=== PATIENT | male | born 1950 | race Caucasian/White ===

== ENCOUNTER 2017-09-07 08:02 | Outpatient (CLI) | payer MEDICARE, BC ==
--- NOTE | 2017-09-07 11:21 | CT ---
CT ABDOMEN AND PELVIS WITH ORAL AND IV CONTRAST: Date: 09/07/17 HISTORY: Abdominal pain. Epigastric pain. FINDINGS: Lung bases are clear. Calcified granulomas are present in the spleen. The liver demonstrates decrease d attenuation compared to the spleen consistent with fatty infiltration. No calcified gallstones are seen. No hepatic mass or abnormal biliary ductal dilatation is identified. The pancreas, adrenal glan ds, and right kidney are normal. There are nonobstructing calculi in the left kidney, the largest valeria suring 4.0 mm. No free air, free fluid, or lymphadenopathy seen in the abdomen or pelvis. There are vascular calcifi cations without evidence of aneurysmal dilatation of the abdominal aorta. The small bowel loops are n ot abnormally dilated. A small, fat-containing left inguinal hernia is present. There are postop ray ges of left hip arthroplasty. Degenerative changes are present in the spine. IMPRESSION: 1. Fatty liver. 2. Splenic granulomas. 3. Nonobstructing left renal calculi. POS: [facility]
[2017-09-07] MEDS ORDERED: Iopamidol 370 76% 100 ML VIAL ONE (13:21)
== END 2017-09-07 08:03 | disposition home or self-care (01) ==
LOC: CT 08:02
PROVIDERS: ATTEND Family Medicine
DX: R10.9 Unspecified abdominal pain (principal); K76.0 Fatty (change of) liver, not elsewhere classified; D73.89 Other diseases of spleen; N20.0 Calculus of kidney
CPT/HCPCS: 74177

== ENCOUNTER 2018-08-18 10:34 | Outpatient (CLI) | payer MEDICARE, BC ==
--- NOTE | 2018-08-18 12:35 | MRI ---
MRI LUMBAR SPINE NONCONTRAST: HISTORY: Low back pain. Bilateral leg radiculopathy. FINDINGS: Vertebral body height and alignment are maintained. The conus medullaris has a normal appearance. T12-L1/L1-L2: Mild osteophytosis. Central canal and neural foramina are patent. L2-L3: Minimal disk bulge. The thecal sac is patent. The bulge and mild degenerative changes resul t in mild stenosis of each neural foramen. L3-L4: Disk space narrowing and desiccation of the disk. Diffuse posterior disk bulge. Circumferen tial degenerative changes with mild stenosis of the central canal and mild to moderate stenosis of ea ch neural foramen. L4-L5: Mild diffuse posterior disk bulge with minimal central protrusion and inferior extension. Co ntact but no significant compression of the thecal sac. Degenerative changes with moderate stenosis of each neural foramen. L5-S1: Minimal degenerative spondylolisthesis. The thecal sac is patent. Mild to moderate right an d severe left foraminal stenoses. IMPRESSION: Degenerative changes throughout the lumbar spine, as detailed above. The most significant stenosis i s at the left neural foramen of the lumbosacral junction. Clinical correlation regarding the left L5 dermatome is required. POS: [facility]
--- NOTE | 2018-08-18 12:38 | RAD ---
LUMBAR SPINE SERIES THREE VIEWS INCLUDING FLEXION AND EXTENSION: HISTORY: Bilateral leg pain and low back pain. FINDINGS: Vertebral bodies are normal in height. There is degenerative disk narrowing, most pronounced at L3-L 4 with some minimal disk narrowing at L4-L5 and L5-S1. Degenerative facet changes are present. Ther e is no spondylolisthesis on the neutral view. There is very limited motion in flexion or extension, without any definite change. IMPRESSION: Moderate arthritic changes of the spine. POS: [facility]
== END 2018-08-18 10:35 | disposition home or self-care (01) ==
LOC: TBSIIMAG 10:34
PROVIDERS: ATTEND Neurological Surgery
DX: M48.062 Spinal stenosis, lumbar region with neurogenic claudication (principal); M48.07 Spinal stenosis, lumbosacral region
CPT/HCPCS: 72100; 72148

== ENCOUNTER 2018-08-18 10:36 | Outpatient (CLI) | payer MEDICARE, BC ==
--- NOTE | 2018-08-18 13:26 | CT ---
CT OF THE ABDOMEN AND PELVIS WITHOUT IV CONTRAST: INDICATION: History of right-sided abdominal pain with renal stones. COMPARISON: Prior CT of the abdomen and pelvis dated 09/07/2017. FINDINGS: There is an 8 mm stone involving the inferior pole left kidney. There is a 5, 4, and 2 mm stone invo lving the inferior pole left kidney. There is an 8 and 2 mm stone involving the inferior pole of the right kidney. No hydronephrosis is evident. Unopacified liver, spleen, pancreas, and adrenal glands are unremarkable-appearing. There are scattered diverticula involving the colon. There are scattered vascular calcifications. There is a left total hip prosthesis in place. There is scattered degenerative change. IMPRESSION: 1. Bilateral nephrolithiasis. No ureteral calculus or hydronephrosis demonstrated. 2. Colonic diverticulosis. 3. Other chronic type findings. POS: [facility]
== END 2018-08-18 10:37 | disposition home or self-care (01) ==
LOC: TBSIIMAG 10:36
PROVIDERS: ATTEND Urology
DX: N20.0 Calculus of kidney (principal); K57.30 Diverticulosis of large intestine without perforation or abscess without bleeding; I70.90 Unspecified atherosclerosis
CPT/HCPCS: 72100; 72148; 74176

== ENCOUNTER 2018-09-24 03:15 | Outpatient (CLI) | payer MEDICARE, BC ==
[2018-09-24 11:57] LABS: Hemoglobin 15.5 g/dL (14.0-18.0); Mean Corpuscular HGB CONC 33.6 g/dL (32.0-36.0); Mean Corpuscular Hemoglobin 32.7 pg (27.0-31.0); Mean Corpuscular Volume 97.5 fL (78.0-98.0); Mean Platelet Volume 9.4 fL (7.4-10.4); Platelet Count 161 thou/uL (130-400); RBC Distribution Width 11.8 % (11.5-14.5); Red Blood Cell (RBC) Count 4.73 mill/uL (4.70-6.10); White Blood Cell (WBC) Count 9.8 thou/uL (4.8-10.8)
[2018-09-24 12:02] LABS: Prothrombin Time 12.8 SEC (12.0-14.7)
[2018-09-24 12:09] LABS: Bilirubin Negative (Negative); Blood, Urine Small (Negative); Clarity CLEAR (Clear); Glucose, Urine (Dipstick) Negative (Negative); Leukocyte Moderate (Negative); Nitrite Negative (Negative); Protein, Urine (Dipstick) Negative (Neg-Trace); Specific Gravity, Urine 1.012 (1.002-1.036); Urobilinogen 0.2 mg/dL (0.2-1.0)
[2018-09-24 12:11] LABS: Bacteria/HPF None Seen HPF (None Seen); Hyaline Casts/LPF 0-3 HYALINE CAST LPF (0-3 Hyaline); Squamous Epithelial None Seen HPF (0-3); WBC/HPF 21-50 HPF (0-3)
[2018-09-24 12:21] LABS: Anion Gap 15 mmol/L (10-20); BUN (Urea Nitrogen) 12 mg/dL (8.4-25.7); Calc. Creatinine Clearance 0 mL/min (70-130); Calcium 9.7 mg/dL (7.8-10.44); Carbon Dioxide 25 mmol/L (23-31); Chloride 104 mmol/L (98-107); Estimated GFR-MDRD 87; Glucose 91 mg/dL (80-115); Potassium 4.7 mmol/L (3.5-5.1); Sodium 139 mmol/L (136-145)
--- NOTE | 2018-09-24 15:04 | EKG ---
Test Reason : Blood Pressure : / mmHG Vent. Rate : 063 BPM Atrial Rate : 063 BPM P-R Int : 152 ms QRS Dur : 128 ms QT Int : 442 ms P-R-T Axes : 042 026 006 degrees QTc Int : 452 ms Normal sinus rhythm Right bundle branch block Abnormal ECG Confirmed by CINDY MONIQUE ([id number]) on 09/24/2018 3:04:02 PM Referred By: JOSE Confirmed By:CINDY MONIQUE
== END 2018-09-24 03:16 | disposition home or self-care (01) ==
LOC: LABBT 03:15
PROVIDERS: ATTEND Urology
DX: Z01.818 Encounter for other preprocedural examination (principal); N20.0 Calculus of kidney; N40.1 Benign prostatic hyperplasia with lower urinary tract symptoms
CPT/HCPCS: 80048; 81001; 85027; 85610; 85730; 87077; 87086; 87186; 93005; 93010

== ENCOUNTER 2018-10-08 06:21 | Day surgery (SDC) | payer MEDICARE, BC ==
[2018-09-24 10:34] VITALS: BMI 31.9
[2018-10-08] MEDS ORDERED: cefTRIAXone\\ROCEPHIN 1 GM VIAL ONE (06:35)
[2018-10-08] MEDS ORDERED: Sodium Chloride 0.9% 100 ML ONE (06:46)
[2018-10-08] MEDS ORDERED: Fentanyl 100 MCG/2 ML VIAL ONE (07:26)
[2018-10-08] MEDS ORDERED: Iothalamate Meglumine 60% 50 ML VIAL FS ONE (07:36)
[2018-10-08] MEDS ORDERED: Phenazopyridine HCl 97.5 MG TABLET ONE (10:04)
[2018-10-08] MEDS ORDERED: PHENYLEPHRINE-NS 100 MCG/ML 10 ML SYRINGE ONE (12:17)
[2018-10-08] MEDS ORDERED: Glycopyrrolate 0.2 MG/ML 5 ML SYRINGE ONE (12:17)
[2018-10-08] MEDS ORDERED: Rocuronium Bromide 10 MG/ML (10ML VIAL) ONE (12:17)
[2018-10-08] MEDS ORDERED: Ondansetron PF 4 MG/2 ML Vial ONE (12:17)
[2018-10-08] MEDS ORDERED: PROPOFOL 200 MG/20 ML VIAL ONE (12:17)
[2018-10-08] MEDS ORDERED: Lidocaine 1% PF 5 ML VIAL ONE (12:17)
[2018-10-08] MEDS ORDERED: traMADol HCl 50 MG TAB ONE (12:40)
[2018-10-08] MEDS ORDERED: Oxybutynin 5 MG TAB ONE (13:37)
--- NOTE | 2018-10-11 13:36 | OP ---
DATE OF PROCEDURE: 10/08/2018 SERVICE: Urology. PREOPERATIVE DIAGNOSIS: Bilateral renal calculi. POSTOP DIAGNOSIS: Bilateral renal calculi. PROCEDURES PERFORMED: Cystoscopy with right ureteroscopy, laser lithotripsy, basket extraction of stone, and placement of a 6 x 26 double-J stent. INDICATION FOR PROCEDURE: Mr. Kirkland is a 68-year-old white male, who initially presented to [facility] with kidney stones many years ago. He has previously had ureteroscopies with surgery and had been on stone prevention with a Litholink. He failed to follow up for a few years and has now presented with recurrent hematuria and recurrent urinary tract infection. He was found to have bilateral renal calculi and we have elected to start intervention by treating stones on the right side. Risks and benefits of the surgery have been discussed and he has agreed to proceed forward. DESCRIPTION OF PROCEDURE: After identification of armband and verification of consent, the patient was brought back to the operating room, where he underwent general anesthesia with endotracheal intubation. He was then placed in dorsal lithotomy position and prepped and draped in the usual sterile fashion. After appropriate time-out, a lubricated 22-Croatian rigid cystoscope was introduced per urethra into the bladder. Attention was turned to the right ureteral orifice, which was cannulated with a 0.035 Sensor wire up to the level of renal pelvis. The cystoscope was then removed and a dual-lumen ureteral catheter was advanced over the Sensor wire to the level of the proximal ureter. An Amplatz Super Stiff wire was then placed through the second lumen up to the level of renal pelvis. The dual-lumen was then removed and the Sensor wire affixed to the drapes as a safety wire. A 11/13 x 46 cm ureteral access sheath was then advanced over the Super Stiff wire up to the level of the proximal ureter. The inner cannula and Super Stiff wire were then removed leaving the outer sheath and Sensor wire in place as a safety wire. A flexible digital ureteroscope was then passed through the ureteral access sheath up to the level of renal pelvis. A full pyeloscopy was performed which demonstrated a few calculi within the right kidney measuring about 2 mm and 8 mm. The 2 mm stone was able to be basketed and removed with simple basket extraction. The 8 mm stone was moved from the lower pole into the upper pole with a 1.9-Croatian ZeroTip Nitinol basket and then a 365 micron laser fiber was used to fragment the stone into small pieces. The pieces were then individually removed with the 1.9-[place]atian ZeroTip Nitinol basket until there were no additional stone fragments identified. Only remaining fragments were submillimeter dust particles, which I felt would pass easily without any problems. The sheath and the ureteroscope was then withdrawn and pull-back ureteroscopy was employed with no additional stones found within the ureter. The ureteroscope and sheath were then removed and the cystoscope was then backloaded over the sensor wire back in the bladder. A 6 x 26 double-J stent was advanced over the Sensor wire up to the level of renal pelvis. The wire was removed leaving a good curl in the kidney and a good curl in the bladder. There was noted to be mucosal splitting on the ureter on the way out secondary to the ureteral access sheath, which had dilated the ureter somewhat. As such, I have elected to leave the stent in for two weeks to allow for better healing. The bladder was emptied and the cystoscope was removed. The patient then awakened and taken to PACU for recovery in stable condition. COMPLICATIONS: None. ESTIMATED BLOOD LOSS: Minimal. RETAINED TUBES AND DRAINS: 6 x 26 double-J stent on the right. SPECIMENS: Stone for stone analysis. DISPOSITION: The patient will be discharged home and follow up with me in approximately 2 weeks for a cysto stent removal after which time, we can discuss treatment if his UTI do not stop. Job ID: [id number]
[2018-10-13 10:18] LABS: CA Oxalate Dihydrate 20 % (.); CA Oxalate Monohydrate 50 % (.); CA Phosphate 30 % (.); Color Tan (.); Stone Weight 26.2 mg (.)
== END 2018-10-08 15:17 | disposition home or self-care (01) ==
LOC: SDC 06:21
PROVIDERS: ATTEND Urology
PROC: 0TF38ZZ Fragmentation in Right Kidney Pelvis, Via Natural or Artificial Opening Endoscopic (ICD-10-PCS; principal; 2018-10-08)
PROC: 0T768DZ Dilation of Right Ureter with Intraluminal Device, Via Natural or Artificial Opening Endoscopic (ICD-10-PCS; 2018-10-08)
DX: N20.0 Calculus of kidney (principal); N40.0 Benign prostatic hyperplasia without lower urinary tract symptoms; K58.9 Irritable bowel syndrome, unspecified; E78.5 Hyperlipidemia, unspecified; I10 Essential (primary) hypertension; M19.90 Unspecified osteoarthritis, unspecified site; Z88.2 Allergy status to sulfonamides; M48.061 Spinal stenosis, lumbar region without neurogenic claudication; G25.81 Restless legs syndrome; Z79.82 Long term (current) use of aspirin; Z79.899 Other long term (current) drug therapy; Z88.0 Allergy status to penicillin; Z88.5 Allergy status to narcotic agent
CPT/HCPCS: 52356; 76000; 82365; 88300; C1769; J0696; J2001; J2405; J2704; J3010; J7050; Q9961

== ENCOUNTER 2018-11-30 09:46 | Outpatient (CLI) | payer MEDICARE, BC ==
--- NOTE | 2018-11-30 11:10 | ULT ---
BILATERAL RENAL ULTRASOUND: HISTORY: Kidney stones. FINDINGS: The right kidney measures 11.8 cm in length, and the left kidney measures 10.3 cm in length. There i s a left renal calculus, measuring 1 cm. No renal mass is noted. No hydronephrosis is seen. The ur inary bladder is unremarkable. IMPRESSION: Nonobstructing 1 cm left renal calculus. POS: [facility]
== END 2018-11-30 09:47 | disposition home or self-care (01) ==
LOC: BICULT 09:46
PROVIDERS: ATTEND Urology
DX: N20.0 Calculus of kidney (principal)
CPT/HCPCS: 76770

== ENCOUNTER 2019-08-18 14:55 | Outpatient (CLI) | payer MEDICARE, BC ==
--- NOTE | 2019-08-18 15:43 | RAD ---
CERVICAL SPINE FOUR VIEWS: HISTORY: Cervicalgia. FINDINGS: The cervical vertebrae maintain height and alignment. There are mild to moderate degenerative changes in the mid and lower cervical spine with loss of disk space and osteophytes, seen most pronounced at the C5-C6 and C6-C7 levels. Posterior spondylosis at C5-C6 is noted. Mild facet hypertrophy is seen at these levels. IMPRESSION: Mild to moderate degenerative changes in the lower cervical spine, as described. POS: [facility]
== END 2019-08-18 14:56 | disposition home or self-care (01) ==
LOC: BICRAD 14:55
PROVIDERS: ATTEND Family Medicine
DX: M54.2 Cervicalgia (principal); M47.812 Spondylosis without myelopathy or radiculopathy, cervical region
CPT/HCPCS: 36415; 72040; 80053; 83520; 84443; 85025; 85652; 86038; 86200; 86225

== ENCOUNTER 2019-09-15 11:57 | Outpatient (CLI) | payer MEDICARE, BC ==
--- NOTE | 2019-09-15 12:23 | RAD ---
RADIOGRAPH ABDOMEN 1 VIEW: DATE: 09/15/2019. HISTORY: A 69-year-old male with calculus of kidney. COMPARISON: 10/15/2015. FINDINGS: The previously demonstrated approximately 13 mm calculus overlying the lower pole of the left kidney either has changed position and orientation, or has been eliminated and then replaced with new calcul i. Currently, there is a similar-sized 12 x 5 mm calculus overlying the left renal mid-lower pole. Slightly inferior to that, there are either 2 small calculi adjacent to each other or 1 branched calc ulus, which in aggregate measures approximately 8 x 5 mm. No calculus is visualized over the right renal shadow. Bowel gas pattern is normal. IMPRESSION: Nephrolithiasis consisting of calculi at left lower renal pole. POS: [facility]
== END 2019-09-15 11:58 | disposition home or self-care (01) ==
LOC: RAD 11:57
PROVIDERS: ATTEND Urology
DX: N20.0 Calculus of kidney (principal)
CPT/HCPCS: 74018

== ENCOUNTER 2021-01-10 09:40 | Outpatient (CLI) | payer MEDICARE, BC | END 2021-01-10 09:41 | disposition home or self-care (01) | LOC: BICMRI 09:40 | PROVIDERS: ATTEND Family Medicine | DX: M47.22 Other spondylosis with radiculopathy, cervical region (principal) | CPT/HCPCS: 72141 ==

== ENCOUNTER 2022-01-27 10:12 | Outpatient (CLI) | payer MEDICARE, BC | END 2022-01-27 10:13 | disposition home or self-care (01) | LOC: TBSIIMAG 10:12 | PROVIDERS: ATTEND Family Medicine | DX: M47.26 Other spondylosis with radiculopathy, lumbar region (principal); M47.817 Spondylosis without myelopathy or radiculopathy, lumbosacral region | CPT/HCPCS: 72148 ==

== ENCOUNTER 2022-04-10 10:05 | Outpatient (CLI) | payer MEDICARE, BC ==
[2022-04-10 12:03] LABS: #Eosinphils 0.1 10x3/uL (0.0-0.5); #Monocytes 0.7 10x3/uL (0.0-1.1); #Neutrophils 2.3 10x3/uL (1.5-8.4); %Basophils 0.8 % (0.0-2.0); %Eosinophils 2.8 % (0.0-6.0); %Lymphocytes 37.6 % (18.0-47.0); %Monocytes 13.3 % (0.0-10.0); %Neutrophils 45.3 % (40.0-75.0); Hemoglobin 15.5 g/dL (13.5-17.5); Mean Corpuscular HGB CONC 33.9 g/dL (32.0-36.0); Mean Corpuscular Hemoglobin 31.8 pg (27.0-33.0); Mean Corpuscular Volume 93.6 fl (81.2-95.1); Mean Platelet Volume 11.9 fl (7.4-10.4); Platelet Count 168 10x3/uL (150-450); RBC Distribution Width 12.5 % (11.5-14.5); Red Blood Cell (RBC) Count 4.88 10x6/uL (4.32-5.72)
[2022-04-10 12:17] LABS: Prothrombin Time 10.9 sec (9.5-12.1)
[2022-04-10 12:21] LABS: Anion Gap 14 mmol/L (10-20); BUN (Urea Nitrogen) 13 mg/dL (8.4-25.7); Calc. Creatinine Clearance 0 mL/min (70-130); Calcium 9.4 mg/dL (7.8-10.44); Carbon Dioxide 26 mmol/L (23-31); Chloride 101 mmol/L (98-107); Estimated GFR 91; Glucose 119 mg/dL (83-110); Potassium 3.8 mmol/L (3.5-5.1); Sodium 137 mmol/L (136-145)
== END 2022-04-10 10:06 | disposition home or self-care (01) ==
LOC: LABBT 10:05
PROVIDERS: ATTEND Orthopaedic Surgery
DX: Z01.818 Encounter for other preprocedural examination (principal); M16.11 Unilateral primary osteoarthritis, right hip; Z20.822 Contact with and (suspected) exposure to COVID-19
CPT/HCPCS: 80048; 85025; 85610; 87081; 87811; 93005; 93010

== ENCOUNTER 2022-04-10 11:52 | Outpatient (CLI) | payer MEDICARE, BC | END 2022-04-10 11:53 | disposition home or self-care (01) | LOC: BICRAD 11:52 | PROVIDERS: ATTEND Urology | DX: N20.0 Calculus of kidney (principal) | CPT/HCPCS: 74018; 80048; 85025; 85610; 87081; 87811; 93005 ==

== ENCOUNTER 2022-04-15 05:31 | Observation (INO) | payer MEDICARE, BC ==
[2022-04-11 11:59] VITALS: BMI 30.4
[2022-04-15] MEDS ORDERED: Tranexamic Acid 1,000 MG/10 ML VIAL ONE (06:17)
[2022-04-15] MEDS ORDERED: Sodium Chloride 0.9% 0 ML ONE (06:17)
[2022-04-15] MEDS ORDERED: CEFAZOLIN 2 GM VIAL ONE (06:17)
[2022-04-15] MEDS ORDERED: Vancomycin (BATCH) 1.5 GRAM/300 ML BAG ONE (06:17)
[2022-04-15] MEDS ORDERED: Sodium Chloride 0.9% 100 ML ONE (06:18)
[2022-04-15] MEDS ORDERED: Bupivacaine PF 0.5% 30 ML VIAL ONE (06:25)
[2022-04-15] MEDS ORDERED: fentaNYL Citrate/PF 100 MCG/2 ML SYRINGE ONE (06:30)
[2022-04-15] MEDS ORDERED: Propofol 1,000 MG/100 ML VIAL IV ONE (06:31)
[2022-04-15] MEDS ORDERED: Midazolam HCl 2 mg/2 ml Vial ONE (06:44)
[2022-04-15] MEDS ORDERED: Fentanyl 100 MCG/2 ML VIAL ONE (06:44)
[2022-04-15] MEDS ORDERED: Levofloxacin 500 mg/D5W 100 ml Premix Bag ONE (06:51)
[2022-04-15] MEDS ORDERED: Lidocaine 2% 6 ML SYR ONE (07:09)
[2022-04-15] MEDS ORDERED: MORPHINE 5 MG/10 ML PF VIAL ONE (07:09)
[2022-04-15] MEDS ORDERED: Phenylephrine 10 MG/ML VIAL ONE (07:15)
[2022-04-15] MEDS ORDERED: ePHEDrine 50 MG/ML VIAL ONE (07:15)
[2022-04-15] MEDS ORDERED: Dexamethasone 20 MG/5 ML VIAL ONE (07:15)
[2022-04-15] MEDS ORDERED: PROPOFOL 200 MG/20 ML VIAL ONE (07:15)
[2022-04-15] MEDS ORDERED: Ondansetron PF 4 MG/2 ML Vial ONE (07:15)
[2022-04-15] MEDS ORDERED: Acetaminophen 325 MG TAB PO PRN (07:22)
[2022-04-15] MEDS ORDERED: Promethazine HCl 25 MG/ML VIAL IM PRN ×2 (07:22→08:32)
[2022-04-15] MEDS ORDERED: Zolpidem Tartrate 5 MG TAB PO PRN (07:22)
[2022-04-15] MEDS ORDERED: Ondansetron PF 4 MG/2 ML Vial IVP PRN (07:22)
[2022-04-15] MEDS ORDERED: HYDROcodone/Acetaminophen 10/325 mg Tablet PO PRN (07:22)
[2022-04-15] MEDS ORDERED: Ondansetron HCl/PF 4 MG/2 ML Vial IVP PRN (08:32)
[2022-04-15] MEDS ORDERED: Promethazine HCl 25 MG/ML VIAL IVPB PRN (08:32)
[2022-04-15] MEDS: Aspirin 81 mg Enteric Coated Tablet PO SCH ×2 (09:00→21:26)
[2022-04-15] MEDS: Sodium Chloride 0.9% 1,000 ML IV SCH ×2 (10:29→21:25)
[2022-04-15] MEDS: Ketorolac Tromethamine 30 MG/ML VIAL IVP SCH ×2 (14:30→20:49)
[2022-04-15] MEDS ORDERED: Vancomycin 1.5 GRAM/300 ML BAG 1.5 GM in Premix Bag 1 BAG IVPB SCH (20:00)
[2022-04-16] MEDS: Sodium Chloride 0.9% 1,000 ML IV SCH ×3 (02:31→23:32)
[2022-04-16] MEDS: diphenhydrAMINE 25 MG CAP PO PRN ×3 (02:33→18:29)
[2022-04-16] MEDS: HYDROcodone/Acetaminophen 10/325 mg Tablet PO PRN ×3 (02:34→18:29)
[2022-04-16 05:27] LABS: Hemoglobin 12.7 g/dL (14.0-18.0); Mean Corpuscular HGB CONC 33.6 g/dL (32.0-36.0); Mean Corpuscular Hemoglobin 33.5 pg (27.0-31.0); Mean Corpuscular Volume 99.8 fL (78.0-98.0); Mean Platelet Volume 9.1 fL (7.4-10.4); Platelet Count 144 thou/uL (130-400); RBC Distribution Width 12.1 % (11.5-14.5); Red Blood Cell (RBC) Count 3.81 mill/uL (4.70-6.10); White Blood Cell (WBC) Count 9.9 thou/uL (4.8-10.8)
[2022-04-16] MEDS: Ketorolac Tromethamine 30 MG/ML VIAL IVP SCH ×3 (06:18→21:41)
[2022-04-16] MEDS: Aspirin 81 mg Enteric Coated Tablet PO SCH ×2 (08:48→21:42)
[2022-04-16] MEDS: Ferrous Gluconate 324 MG TAB PO SCH ×2 (08:48→18:15)
[2022-04-16] MEDS: Multivitamin W/ Minerals 1 TAB PO SCH (08:48)
[2022-04-16] MEDS: Senokot S 8.6-50 MG TAB PO SCH ×2 (08:48→21:43)
[2022-04-17] MEDS: HYDROcodone/Acetaminophen 10/325 mg Tablet PO PRN ×2 (01:05→06:34)
[2022-04-17] MEDS: diphenhydrAMINE 25 MG CAP PO PRN ×2 (01:06→06:35)
[2022-04-17] MEDS: Ketorolac Tromethamine 30 MG/ML VIAL IVP SCH (04:50)
[2022-04-17 07:48] VITALS: BP 135/79; TEMP 97.8
[2022-04-17] MEDS: Ferrous Gluconate 324 MG TAB PO SCH (09:45)
[2022-04-17] MEDS: Aspirin 81 mg Enteric Coated Tablet PO SCH (09:46)
[2022-04-17] MEDS: Multivitamin W/ Minerals 1 TAB PO SCH (09:46)
[2022-04-17] MEDS: Senokot S 8.6-50 MG TAB PO SCH (09:46)
== END 2022-04-17 10:24 | disposition home or self-care (01) ==
LOC: SDC 05:31 → SJJU 10:18
PROVIDERS: ADMIT Orthopaedic Surgery; ATTEND Orthopaedic Surgery
PROC: 0SR90J9 Replacement of Right Hip Joint with Synthetic Substitute, Cemented, Open Approach (ICD-10-PCS; principal; 2022-04-15)
DX: M16.11 Unilateral primary osteoarthritis, right hip (principal); Z79.82 Long term (current) use of aspirin; Z79.899 Other long term (current) drug therapy; Z88.0 Allergy status to penicillin; Z88.5 Allergy status to narcotic agent; G47.33 Obstructive sleep apnea (adult) (pediatric)
CPT/HCPCS: 27130; 73502; 85027; 97110 ×3; 97116 ×3; 97530 ×4; 97535 ×2; C1776; J3370; 36415; J0690; J1100; J1885; J1956; J2250; J2274; J2370; J2405; J2704; J3010; J3490; J7050; S0020

== ENCOUNTER 2022-07-29 10:30 | Outpatient (CLI) | payer MEDICARE, BC | END 2022-07-29 10:31 | disposition home or self-care (01) | LOC: BICCT 10:30 | PROVIDERS: ATTEND Urology | DX: N20.0 Calculus of kidney (principal) | CPT/HCPCS: 74176 ==

== ENCOUNTER 2022-09-09 14:11 | Outpatient (CLI) | payer MEDICARE, BC | END 2022-09-09 14:12 | disposition home or self-care (01) | LOC: BICRAD 14:11 | PROVIDERS: ATTEND Family Medicine | DX: M79.642 Pain in left hand (principal) ==

== ENCOUNTER 2022-09-19 09:24 | Outpatient (CLI) | payer MEDICARE, BC ==
[2022-09-19 11:09] LABS: Hemoglobin 15.2 g/dL (13.5-17.5); Mean Corpuscular HGB CONC 33.4 g/dL (32.0-36.0); Mean Corpuscular Hemoglobin 31.1 pg (27.0-33.0); Mean Platelet Volume 11.3 fl (7.4-10.4); Platelet Count 178 10x3/uL (150-450); RBC Distribution Width 12.6 % (11.5-14.5); Red Blood Cell (RBC) Count 4.89 10x6/uL (4.32-5.72); White Blood Cell (WBC) Count 4.8 10x3/uL (3.5-10.5)
[2022-09-19 11:20] LABS: Bilirubin Neg (Negative); Blood, Urine 25 (Negative); Clarity Slightly Cloudy (Clear); Glucose, Urine (Dipstick) Normal (Negative); Ketone, Urine Negative (Negative); Leukocyte 500 (Negative); Nitrite Negative (Negative); Protein, Urine (Dipstick) Negative (Neg-Trace); Urobilinogen Normal mg/dL (Less than 2); pH, Urine 6.5 (5.0-9.0)
[2022-09-19 11:23] LABS: PTT 27.6 sec (22.0-33.0); Prothrombin Time 10.6 sec (9.5-12.1)
[2022-09-19 11:30] LABS: Anion Gap 16 mmol/L (10-20); BUN (Urea Nitrogen) 14 mg/dL (8.4-25.7); Calc. Creatinine Clearance 0 mL/min (70-130); Calcium 9.6 mg/dL (7.8-10.44); Carbon Dioxide 26 mmol/L (23-31); Chloride 102 mmol/L (98-107); Estimated GFR 89; Glucose 102 mg/dL (83-110); Potassium 3.8 mmol/L (3.5-5.1); Sodium 140 mmol/L (136-145)
[2022-09-19 11:34] LABS: Squamous Epithelial 0-3 HPF (0-3)
[2022-09-19 11:35] LABS: Bacteria/HPF 1+ HPF (None Seen); Mucous/LPF Rare LPF (<2+)
== END 2022-09-19 09:25 | disposition home or self-care (01) ==
LOC: LABBT 09:24
PROVIDERS: ATTEND Urology
DX: Z01.818 Encounter for other preprocedural examination (principal); N40.1 Benign prostatic hyperplasia with lower urinary tract symptoms; N20.0 Calculus of kidney
CPT/HCPCS: 71046; 80048; 81001; 85027; 85610; 85730; 87086; 93005; 93010

== ENCOUNTER 2022-10-01 15:37 | Emergency (ER) | payer MEDICARE, BC ==
[2022-10-01 18:03] LABS: Bacteria/HPF None Seen HPF (None Seen); Bilirubin Negative (Negative); Blood, Urine 3+ (Negative); Clarity Turbid (Clear); Glucose, Urine (Dipstick) Normal (Negative); Ketone, Urine Negative (Negative); Leukocyte 75 Leu/uL (Negative); Nitrite Negative (Negative); Protein, Urine (Dipstick) 100 mg/dL (Neg-Trace); RBC/HPF Greater than 50 HPF (0-3); Specific Gravity, Urine 1.033 (1.002-1.036); Squamous Epithelial None Seen HPF (0-3); Urobilinogen Normal mg/dL (Less than 2); pH, Urine 5.5 (5.0-9.0)
[2022-10-01 18:06] LABS: #Lymphocytes 0.4 thou/uL (1.20-3.40); #Monocytes 0.3 thou/uL (0.11-0.59); #Neutrophils 10.6 thou/uL (1.40-6.50); %Basophils 0.4 % (0.0-1.0); %Eosinophils 0.1 % (0.0-10.0); %Lymphocytes 3.3 % (21.0-51.0); %Monocytes 2.7 % (0.0-10.0); %Neutrophils 93.4 % (42.0-75.0); Hemoglobin 16.5 g/dL (14.0-18.0); Mean Corpuscular HGB CONC 34.3 g/dL (32.0-36.0); Mean Corpuscular Hemoglobin 32.8 pg (27.0-31.0); Mean Corpuscular Volume 95.6 fl (78.0-98.0); Mean Platelet Volume 8.6 fL (7.4-10.4); Platelet Count 132 10x3/uL (130-400); RBC Distribution Width 12.4 % (11.5-14.5); Red Blood Cell (RBC) Count 5.02 mill/uL (4.70-6.10); White Blood Cell (WBC) Count 11.3 10x3/uL (4.8-10.8)
[2022-10-01 18:25] LABS: ALT (SGPT) 27 U/L (8-55); AST (SGOT) 25 U/L (5-34); Alkaline Phosphatase 52 U/L (40-110); Anion Gap 14 mmol/L (10-20); BUN (Urea Nitrogen) 15 mg/dL (8.4-25.7); Bilirubin, Total 1.3 mg/dL (0.2-1.2); Calc. Creatinine Clearance 0 mL/min (70-130); Calcium 9.7 mg/dL (7.8-10.44); Carbon Dioxide 25 mmol/L (23-31); Chloride 101 mmol/L (98-107); Estimated GFR 56; Globulin 3.6 g/dL (2.4-3.5); Glucose 151 mg/dL (83-110); Potassium 3.4 mmol/L (3.5-5.1); Protein, Total 7.6 g/dL (5.8-8.1); Sodium 137 mmol/L (136-145)
[2022-10-01] MEDS ORDERED: cefTRIAXone\\ROCEPHIN 1 GM VIAL ONE (19:18)
[2022-10-01] MEDS ORDERED: Ketorolac Tromethamine 30 MG/ML VIAL ONE (19:18)
== END 2022-10-01 21:00 | disposition home or self-care (01) ==
LOC: ERS 15:37
DX: R68.83 Chills (without fever) (principal); R68.89 Other general symptoms and signs; I10 Essential (primary) hypertension; E78.00 Pure hypercholesterolemia, unspecified; Z79.899 Other long term (current) drug therapy
CPT/HCPCS: 36415; 74176; 80053; 81003; 81015; 85025; 87040; 87077; 87086; 87149; 87186; 96365; 96367; 96375; J0696; J1885; J1956

== ENCOUNTER 2022-10-03 06:51 | Day surgery (SDC) | payer MEDICARE, BC ==
[2022-10-01 10:10] VITALS: BMI 29.7
[~2022-10-03 06:51] MED LIST: Bacitracin Zinc Ointment 30 gm TUBE ONE; Iopamidol 30 ML ONE
[2022-10-03] MEDS ORDERED: Levofloxacin 500 mg/D5W 100 ml Premix Bag ONE (07:50)
[2022-10-03] MEDS ORDERED: SUGAMMADEX SODIUM 200 MG/2 ML VIAL ONE (08:35)
[2022-10-03] MEDS ORDERED: fentaNYL PF 100 MCG/2 ML SYRINGE ONE (08:35)
[2022-10-03] MEDS ORDERED: CEFAZOLIN 2 GM VIAL ONE (08:53)
[2022-10-03] MEDS ORDERED: Sodium Chloride 0.9% 100 ML ONE (08:53)
[2022-10-03] MEDS ORDERED: Bupivacaine/Epinephrine 0.25% 30 ML VIAL ONE (10:37)
== END 2022-10-03 13:51 | disposition home or self-care (01) ==
LOC: SDC 06:51
PROVIDERS: ATTEND Urology
PROC: 0TC13ZZ Extirpation of Matter from Left Kidney, Percutaneous Approach (ICD-10-PCS; principal; 2022-10-03)
PROC: 0TC78ZZ Extirpation of Matter from Left Ureter, Via Natural or Artificial Opening Endoscopic (ICD-10-PCS; 2022-10-03)
PROC: 0T778DZ Dilation of Left Ureter with Intraluminal Device, Via Natural or Artificial Opening Endoscopic (ICD-10-PCS; 2022-10-03)
DX: N20.2 Calculus of kidney with calculus of ureter (principal); N40.1 Benign prostatic hyperplasia with lower urinary tract symptoms; R35.0 Frequency of micturition; E78.5 Hyperlipidemia, unspecified; G47.33 Obstructive sleep apnea (adult) (pediatric); M17.9 Osteoarthritis of knee, unspecified; M19.019 Primary osteoarthritis, unspecified shoulder; Z79.2 Long term (current) use of antibiotics; Z79.82 Long term (current) use of aspirin; Z79.899 Other long term (current) drug therapy; Z88.0 Allergy status to penicillin; Z88.5 Allergy status to narcotic agent
CPT/HCPCS: 36415; 82365; 86850; 86900; 86901; 88300; C1747; C1769; C1894; C2617; J1956; J3490; Q9967

== ENCOUNTER 2022-10-08 18:42 | Inpatient (IN) | payer MEDICARE, BC ==
[2022-10-08] MEDS ORDERED: Aspirin Chewable 81 MG TAB ONE (19:25)
[2022-10-08 19:41] LABS: #Eosinphils 0.2 thou/uL (0.0-0.7); #Lymphocytes 2.3 thou/uL (1.20-3.40); #Monocytes 0.6 thou/uL (0.11-0.59); #Neutrophils 3.8 thou/uL (1.40-6.50); %Basophils 0.3 % (0.0-1.0); %Eosinophils 3.5 % (0.0-10.0); %Lymphocytes 32.7 % (21.0-51.0); %Neutrophils 54.4 % (42.0-75.0); Mean Corpuscular HGB CONC 34.3 g/dL (32.0-36.0); Mean Corpuscular Hemoglobin 32.8 pg (27.0-31.0); Mean Corpuscular Volume 95.7 fl (78.0-98.0); Mean Platelet Volume 8.8 fL (7.4-10.4); Platelet Count 190 10x3/uL (130-400); RBC Distribution Width 12.5 % (11.5-14.5); Red Blood Cell (RBC) Count 5.16 mill/uL (4.70-6.10); White Blood Cell (WBC) Count 6.9 10x3/uL (4.8-10.8)
[2022-10-08 19:43] LABS: Bacteria/HPF None Seen HPF (None Seen); Bilirubin Negative (Negative); Blood, Urine 3+ (Negative); Clarity Clear (Clear); Glucose, Urine (Dipstick) Normal (Negative); Ketone, Urine Negative (Negative); Leukocyte 75 Leu/uL (Negative); Nitrite Negative (Negative); Protein, Urine (Dipstick) Negative (Neg-Trace); Specific Gravity, Urine 1.006 (1.002-1.036); Squamous Epithelial 0-3 HPF (0-3); Urobilinogen Normal mg/dL (Less than 2); WBC/HPF 21-50 HPF (0-3); pH, Urine 6.5 (5.0-9.0)
[2022-10-08 20:02] LABS: ALT (SGPT) 27 U/L (8-55); AST (SGOT) 25 U/L (5-34); Albumin 4.1 g/dL (3.4-4.8); Alkaline Phosphatase 56 U/L (40-110); Anion Gap 15 mmol/L (10-20); BUN (Urea Nitrogen) 14 mg/dL (8.4-25.7); Bilirubin, Total 0.8 mg/dL (0.2-1.2); Calc. Creatinine Clearance 0 mL/min (70-130); Calcium 9.6 mg/dL (7.8-10.44); Carbon Dioxide 27 mmol/L (23-31); Chloride 98 mmol/L (98-107); Estimated GFR 83; Globulin 3.8 g/dL (2.4-3.5); Glucose 100 mg/dL (83-110); Potassium 3.1 mmol/L (3.5-5.1); Protein, Total 7.9 g/dL (5.8-8.1); Sodium 137 mmol/L (136-145)
[2022-10-08] MEDS ORDERED: Levofloxacin 500 mg/D5W 100 ml Premix Bag ONE (20:46)
[2022-10-08] MEDS ORDERED: Potassium Chloride 20 MEQ TAB PO SCH (22:30)
[2022-10-09 02:27] VITALS: BMI 30.2
[2022-10-09 05:33] LABS: #Eosinphils 0.2 thou/uL (0.0-0.7); #Lymphocytes 2.2 thou/uL (1.20-3.40); #Monocytes 0.5 thou/uL (0.11-0.59); #Neutrophils 2.8 thou/uL (1.40-6.50); %Basophils 0.8 % (0.0-1.0); %Eosinophils 3.9 % (0.0-10.0); %Lymphocytes 37.4 % (21.0-51.0); %Monocytes 9.2 % (0.0-10.0); %Neutrophils 48.7 % (42.0-75.0); Hemoglobin 15.1 g/dL (14.0-18.0); Mean Corpuscular HGB CONC 33.1 g/dL (32.0-36.0); Mean Corpuscular Hemoglobin 31.7 pg (27.0-31.0); Mean Corpuscular Volume 95.9 fl (78.0-98.0); Mean Platelet Volume 8.3 fL (7.4-10.4); Platelet Count 179 10x3/uL (130-400); RBC Distribution Width 12.3 % (11.5-14.5); Red Blood Cell (RBC) Count 4.76 mill/uL (4.70-6.10); White Blood Cell (WBC) Count 5.8 10x3/uL (4.8-10.8)
[2022-10-09 05:53] LABS: Anion Gap 12 mmol/L (10-20); BUN (Urea Nitrogen) 14 mg/dL (8.4-25.7); Calc. Creatinine Clearance 82 mL/min (70-130); Calcium 8.9 mg/dL (7.8-10.44); Carbon Dioxide 26 mmol/L (23-31); Chloride 102 mmol/L (98-107); Estimated GFR 86; Glucose 116 mg/dL (83-110); Potassium 3.5 mmol/L (3.5-5.1); Sodium 136 mmol/L (136-145)
[2022-10-09] MEDS ORDERED: Aspirin 325 mg Enteric Coated Tablet PO SCH (11:45)
[2022-10-09] MEDS ORDERED: Melatonin 3 MG TAB PO PRN (18:50)
[2022-10-09] MEDS ORDERED: Atorvastatin Calcium 40 MG TAB PO SCH (21:00)
[2022-10-09] MEDS ORDERED: Acetaminophen 325 MG TAB PO PRN (23:46)
[2022-10-09] MEDS ORDERED: traMADol HCl 50 MG TAB PO PRN (23:47)
[2022-10-10 06:31] LABS: Hemoglobin A1c 5.3 % (4.0-6.0)
[2022-10-10 06:45] LABS: Cardiac Risk 6.8 (Less than 4.5)
[2022-10-10] MEDS ORDERED: Aspirin 325 mg Enteric Coated Tablet PO SCH (09:00)
[2022-10-10 11:58] VITALS: BP 138/66; TEMP 97.4
== END 2022-10-10 15:40 | disposition home or self-care (01) | DRG 66 ==
LOC: SUATTDRO 18:42 → ERS 18:42 → NEURO 21:51 → OBSVTOIN 10-09 13:39
PROVIDERS: ADMIT Family Medicine; ATTEND Hospitalist
DX: I63.9 Cerebral infarction, unspecified (principal); I10 Essential (primary) hypertension; E78.5 Hyperlipidemia, unspecified; Z96.641 Presence of right artificial hip joint; E87.6 Hypokalemia; R47.1 Dysarthria and anarthria; R47.81 Slurred speech; R27.0 Ataxia, unspecified; R29.710 NIHSS score 10; Z98.890 Other specified postprocedural states; Z88.0 Allergy status to penicillin; Z88.8 Allergy status to other drugs, medicaments and biological substances; Z79.899 Other long term (current) drug therapy; Z79.82 Long term (current) use of aspirin
CPT/HCPCS: 36415; 70450; 70551; 80048; 80053; 80061; 81003; 81015; 83036; 84425; 84443; 85025; 87040; 87086; 93306; 96372; G0378; J1650; J1956

== ENCOUNTER 2023-12-15 10:46 | Outpatient (CLI) | payer MEDICARE | END 2023-12-15 10:47 | disposition home or self-care (01) | LOC: RAD 10:46 | PROVIDERS: ATTEND Physician Assistant Medical | DX: I69.191 Dysphagia following nontraumatic intracerebral hemorrhage (principal); R13.12 Dysphagia, oropharyngeal phase; I63.9 Cerebral infarction, unspecified | CPT/HCPCS: 74230 ==

== ENCOUNTER 2024-01-05 10:35 | Outpatient (CLI) | payer MEDICARE | END 2024-01-05 10:36 | disposition home or self-care (01) | LOC: BICRAD 10:35 | PROVIDERS: ATTEND Family Medicine | DX: R07.89 Other chest pain (principal) | CPT/HCPCS: 71046 ==

== ENCOUNTER 2024-08-25 15:12 | Outpatient (CLI) | payer MEDICARE | END 2024-08-25 15:13 | disposition home or self-care (01) | LOC: BICRAD 15:12 | PROVIDERS: ATTEND Family Medicine | DX: M25.512 Pain in left shoulder (principal); M19.012 Primary osteoarthritis, left shoulder ==

== ENCOUNTER 2025-05-31 11:02 | Outpatient (CLI) | payer MEDICARE | END 2025-05-31 11:03 | disposition home or self-care (01) | LOC: BICRAD 11:02 | PROVIDERS: ATTEND Family Medicine | DX: R06.2 Wheezing (principal) | CPT/HCPCS: 71046 ==